=== PATIENT | female | born 1990 | race Caucasian/White ===

== ENCOUNTER 2017-04-07 06:01 | Day surgery (SDC) | payer MEDICAID ==
[2017-04-06 11:31] VITALS: BMI 28.2
--- NOTE | 2017-04-06 18:00 | PREOPHP ---
DATE OF ADMISSION: 04/07/2017 She is to be admitted tomorrow, 04/07/2017, for a laparoscopic tubal ligation, possible laparotomy i f necessary. HISTORY OF PRESENT ILLNESS: This is a 27-year-old female 4, para 4, who has requested steri lization on the basis of multiparity. The procedure was carefully explained in detail to the patien t in the office. The alternatives to this, the risks of the procedure, the benefits and possible co mplications, including 1% failure rate, were discussed. She was allowed to ask questions, and all o f her questions were answered to her satisfaction and she signed the appropriate surgical informed c onsent. PAST MEDICAL HISTORY: The patient denies any medical problems, including cardiovascular disease, hy pertension, diabetes, renal disease, liver disease or neurological problems. ALLERGIES: SHE HAS NO KNOWN ALLERGIES. MEDICATIONS: Takes no medications on a regular basis. OBSTETRICAL HISTORY: She had 4 well-tolerated pregnancies. They ended up in normal deliveries. Sh sandy has used Depo-Provera for contraception. FAMILY HISTORY: Noncontributory. REVIEW OF SYSTEMS: A 12-point review of systems is noncontributory. PHYSICAL EXAMINATION: GENERAL: Well-developed and nourished, in no distress, alert and oriented x3. The weight is 163 po unds. The height is 5 feet 2. The BMI is 29. VITAL SIGNS: Showed temperature to be 98, blood pressure is 95/61, pulse is 72 per minute and regul ar, respirations are 16 per minute. HEENT: Within normal limits. Pupils: PERRLA. NECK: Supple. Thyroid is nonpalpable. There is no lymphadenopathy. BREASTS: Show no masses or lumps. LUNGS: Clear to percussion and auscultation. HEART: Revealed normal sinus rhythm without a murmur. ABDOMEN: Soft without organomegalies or hernias. PELVIC: Normal external genitalia. Cervix is normal without lesions. Bimanual exam: The uterus i s firm, in the midline. There are no adnexal masses. EXTREMITIES: Within normal limits. NEUROLOGIC: Also normal. IMPRESSION: Multiparity. The patient desires sterilization. She is to be admitted for laparoscopi c bilateral tubal ligation tomorrow, 04/07/2017. Dictated By: BROOKLYN SHAW/MYRTLE Conf#: [id number] [facility]#: [id number]
[~2017-04-07] VITALS: Ht 157.5 cm; Wt 76.7 kg
[2017-04-07] VITALS (13 sets, daily range): BP systolic 101–116; BP diastolic 50–64; PULSE 66–101; RESP 12–22; Ht 157.5 cm; Wt 76.7 kg
[~2017-04-07 06:01] MED LIST: BENZ56AE TOP; IBUP-1542 PO; PREN-39 PO; SENN-25 PO; TYL3 PO
[2017-04-07] MEDS ORDERED: CEFAZOLIN 1 GM INJ ONE (07:00)
[2017-04-07 07:04] LABS: BASOPHILS % 0.3 % (0.0-2.0); EOSINOPHILS # 0.1 10^3/ul (0.0-0.5); EOSINOPHILS % 1.6 % (0.0-7.0); HEMATOCRIT 37.4 % (37.0-47.0); HEMOGLOBIN 12.1 g/dl (12.0-16.0); LYMPHOCYTES # 2.6 10^3/ul (0.8-2.9); LYMPHOCYTES % 29.5 % (15.0-51.0); MEAN CORPUSCULAR HEMOGLOBIN 27.5 pg (29.0-33.0); MEAN CORPUSCULAR HGB CONC 32.4 g/dl (32.0-37.0); MEAN PLATELET VOLUME 11.6 fl (7.4-10.4); MONOCYTE # 0.4 10^3/ul (0.3-0.9); MONOCYTES % 4.5 % (0.0-11.0); NEUTROPHIL # 5.7 10^3/ul (1.6-7.5); NEUTROPHILS % 63.6 % (39.0-77.0); PLATELET COUNT 336 10^3/UL (140-415); RED CELL DISTRIBUTION WIDTH 13.7 % (11.5-14.5); WHITE BLOOD COUNT 8.9 10^3/ul (4.8-10.8)
[2017-04-07 07:32] LABS: INR 1.02; PROTIME 13.4 Sec (12.2-14.2)
[2017-04-07 07:33] LABS: ALBUMIN/GLOBULIN RATIO 1.25; BILIRUBIN,INDIRECT 0.4 mg/dl (0-1.1); BILIRUBIN,TOTAL 0.4 mg/dl (0.2-1.3); TOTAL PROTEIN 7.2 g/dl (6.1-8.1)
[2017-04-07 07:34] LABS: PARTIAL THROMBOPLASTIN TIME 35.6 Sec (25.0-35.0)
[2017-04-07] MEDS ORDERED: BUPIVACAINE 0.5%/EPI (SDV) 30 ML INJ ONE (07:38)
[2017-04-07 07:40] LABS: CREATININE 0.89 mg/dl (0.44-1.00); POTASSIUM 4.1 mmol/L (3.5-5.1)
[2017-04-07] MEDS ORDERED: MIDAZOLAM 1 MG/ML 2 ML INJ ONE (07:45)
[2017-04-07] MEDS ORDERED: ACETAMINOPHEN 1000MG/100ML IV 100 ML ONE (07:45)
[2017-04-07] MEDS ORDERED: ROCURONIUM 50 MG INJ ONE (07:45)
[2017-04-07] MEDS ORDERED: PROPOFOL 20 ML ONE (07:45)
[2017-04-07] MEDS ORDERED: SUCCINYLCHOLINE CHLORIDE 100 MG/5 ML SYG IV ONE (07:45)
[2017-04-07] MEDS ORDERED: ONDANSETRON 4 MG INJ ONE (07:45)
[2017-04-07] MEDS ORDERED: LIDOCAINE 2% (SDV) 5 ML INJ ONE (07:45)
[2017-04-07] MEDS ORDERED: DEXAMETHASONE 4 MG/ML 1 ML INJ ONE (07:45)
[2017-04-07] MEDS ORDERED: FENTAnyl 50 MCG/ML VIAL ONE (07:45)
[2017-04-07] MEDS ORDERED: FAMOTIDINE 20 MG INJ ONE (08:08)
[2017-04-07] MEDS ORDERED: MEPERIDINE 25 MG INJ IV PRN (08:30)
[2017-04-07] MEDS ORDERED: FENTAnyl 50 MCG/ML VIAL IV PRN ×2 (08:30)
[2017-04-07] MEDS ORDERED: ONDANSETRON 4 MG INJ IV PRN ×2 (08:30→09:00)
[2017-04-07] MEDS ORDERED: MIDAZOLAM 1 MG/ML 2 ML INJ IV PRN (08:30)
[2017-04-07] MEDS ORDERED: HYDROmorphONE (0.2 MG/ML) 10ML SYG IV PRN ×2 (08:30)
[2017-04-07] MEDS ORDERED: SUGAMMADEX SODIUM 200 MG/2 ML VIAL IV ONE (08:34)
--- NOTE | 2017-04-07 08:49 | PD.PPDC ---
[employer] Discharge Instruction Diagnosis Final Diagnosis: Multiparity.BTL Condition Patient Condition: Good Diet Diet: Resume Regular Diet Activity/Restrictions Activity: Normal Activity May Shower Restrictions: No Sexual Activity Nothing in the Vagina No [place] Wound/Drain Care Instructions Wound/Drain Care Instructions: Keep clean and dry Follow-up Follow-up with Physician: 1, Week/Weeks Return to clinic for [employer] Instructions: Fever greater than 101 Worsening abdominal pain Unable to tolerate diet Surgical Instructions: Incisional Drainage Incisional Redness BROOKLYN MINA MD Apr 07, 2017 08:48
--- NOTE | 2017-04-07 08:52 | SIPON ---
Date/Time of Note Date/Time of Note See dictated note DATE: 04/07/17 TIME: 08:51 Operative Report Preoperative Diagnosis Multiparity Postoperative Diagnosis Same. Operation/Procedure Performed Laparoscopic BTL Surgeon Dr.Carlos Blayne MD occupational therapy assist None Anesthesia: general Estimated blood loss: none Transfusion Required none Specimen None Grafts/Implants none Complications none BROOKLYN MINA MD Apr 07, 2017 08:52
[2017-04-07] MEDS ORDERED: morphine 2 MG INJ IV PRN (09:00)
[2017-04-07] MEDS ORDERED: IBUPROFEN 600 MG TAB PO PRN (09:00)
[2017-04-07] MEDS ORDERED: OXYCODONE/ACETAMINOPHEN (5/325) TAB PO PRN ×2 (09:00)
[2017-04-07] MEDS ORDERED: LACTATED RINGER'S 1,000 ML IV SCH (09:00)
[2017-04-07] MEDS ORDERED: ACETAMINOPHEN 325 MG TAB PO PRN (09:00)
--- NOTE | 2017-04-07 10:00 | OPR ---
DATE OF OPERATION: 04/07/2017 PREOPERATIVE DIAGNOSIS: Multiparity. POSTOPERATIVE DIAGNOSIS: Multiparity. PROCEDURE PERFORMED: Laparoscopic bilateral tubal ligation. SURGEON: Brooklyn Cisneros MD. ANESTHESIA: General by Dr. Dela Cruz. ESTIMATED BLOOD LOSS: Negligible. SPECIMENS: None. COMPLICATIONS: None. PROCEDURE AND FINDINGS: With the patient under general anesthesia, laid on the table in the dorsal lithotomy position. Her abdomen was prepped with ChloraPrep and the vagina and perineum with Betadi ne. After 3 minutes, she was draped in the usual sterile fashion for this procedure. A small incis ion was done at the level of the umbilicus where the Veress needle was inserted while we were tentin g up the anterior abdominal wall. Once the tip of the needle was ascertained to be intraperitoneal by the hanging drop of saline technique, it was then connected to the CO2 insufflator. Good pneumop eritoneum was obtained. The needle was removed. A 5 mm trocar was passed in. Through this port no w a laparoscope with the endo-camera was inserted. The patient was placed in Trendelenburg position . The pelvic organs looked normal with no pathology. Then, a second port was placed under direct v ision in the hypogastric area in the midline with another 5 mm trocar. To this port, the Kleppinger clamp attached to the gyrus device at 35 [place] of current was inserted. Tubal ligation was started on the left side by cauterizing the tube through and through for 1.5 cm. The same was done on the contralateral side. There was no bleeding, no complications. Pictures were taken for documentation . All the instruments were then removed from the patient's abdomen. The incisions were infiltrated with 0.5% Marcaine with epinephrine, a total of 20 mL. They were closed with 4-0 Monocryl. Band-A ids were applied and the patient was taken to recovery room with all vital signs stable. The EBL wa s negligible. Needle, sponge and instrument count at the end of the procedure was correct twice. Dictated By: BROOKLYN SHAW/MYRTLE Conf#: [id number] DID#: [id number]
== END 2017-04-07 10:50 | disposition home or self-care (01) ==
LOC: SDS 06:01
PROVIDERS: ATTEND Specialist
DX: Z30.2 Encounter for sterilization (principal)
CPT/HCPCS: 58600; 80053; 85025; 85610; 85730; 86850; 86900; 86901; J0131; J0690; J1100; J2250; J2405; J3010; Z7512; Z7610